=== PATIENT | female | born 1935 | race Caucasian/White ===

== ENCOUNTER 2021-03-12 16:47 | Emergency (ER) | payer MEDICARE, SELFPAY ==
[2021-03-12 17:19] VITALS: BP 126/78; PULSE 80; RESP 18; TEMP 36.8; O2SAT 96; BMI 30.2
--- NOTE | 2021-03-12 18:17 | ED_ITS ---
HPI - SOB/Dyspnea General: Chief Complaint: Shortness of Breath/Dyspnea Stated Complaint: Congestion/Fluid Build Up Time Seen by Provider: 03/12/21 18:00 History of Present Illness: HPI Narrative: Patient was brought in with concerns of cough and shortness of breath. Her has pneumonia and her home health nurse is concerned that she has pneumonia also. Also wanted her checked out to see if she is in CHF exacerbation. She has a history of CHF, A. fib, she has a pacemaker. She is also had a valve replacement although she is not sure which valve it is. No fever, cough is not productive. MD elicited complaint: shortness of breath and cough Pertinent past history: congestive heart failure and diabetes Timing: constant Severity: mild Exacerbating factors: nothing Relieving factors: nothing Known history of: congestive heart failure Associated symptoms: Reports cough; Deny abdominal pain, chest congestion, chest pain, diaphoresis, dizziness, extremity pain, fever(s), hemoptysis, lightheadedness, myalgias, nausea, orthopnea, palpitations, paresthesias, polydipsia, polyuria, rash, sense of impending doom, syncope or vomiting Treatment prior to arrival: oxygen Review of Systems General: Reports: 10 or more systems reviewed and unremarkable except in HPI and below Const: Denies: fever(s) or diaphoresis Card: Denies: chest pain, palpitations, lightheadedness, syncope or orthopnea Resp: Denies: hemoptysis or chest congestion GI: Denies: abdominal pain, nausea or vomiting Musc: Denies: extremity pain Neuro: Denies: dizziness Endo: Denies: polyuria or polydipsia [facility] ED PFSH: Medical History (Updated 03/12/21 @ 19:40 by Malu Sheridan [place] [facility] [place] COPD (chronic obstructive pulmonary disease) Physical Exam Const: COMMON NORMALS: no acute distress, average body habitus, patient oriented x3, no limitations, healthy appearing, alert and well nourished HENMT: COMMON NORMALS: normocephalic, atraumatic and moist oral mucous membranes HEAD & SCALP: normocephalic and atraumatic Neck/C-Spine: COMMON NORMALS: no meningeal signs and no JVD Chest: COMMONS NORMALS: normal inspection of the chest and normal palpation of entire chest wall Resp: COMMON NORMALS: normal respiratory effort, No retractions, No use of accessory muscles, clear to auscultation bilaterally and percussion normal AUSCULTATION: clear to auscultation bilaterally PERCUSSION: percussion normal Cardio: COMMON NORMALS: no JVD, regular rate, regular rhythm, S1 normal heart sound present, S2 normal heart sound present, No gallops present (Cardio), No clicks present (Cardio), No rub (Cardio) and Peripheral pulses 2+ throughout RATE: regular rate RHYTHM: regular rhythm HEART SOUNDS: S1 normal heart sound present, S2 normal heart sound present and Murmur heart sound present PERIPHERAL PULSES: Peripheral pulses 2+ throughout GI: COMMON NORMALS: Normal to inspection, nondistended, normoactive bowel sounds present, Soft to palpation, non-tender, No hepatosplenomegaly present, no masses and no bruits PALPATION: Yes Soft to palpation and Yes No hepatosplenomegaly present Extremity: COMMON NORMALS: normal to inspection, full ROM, capillary refill normal, no calf tenderness and no pedal edema Neuro: COMMON NORMALS: patient oriented x3 SENSORIUM/ORIENTATION: Yes alert MENINGEAL SIGNS: Yes no meningeal signs Course Reevaluation(s): Reevaluation #1: Discussed lab and imaging findings with the patient and her son. No acute findings. White cell count normal, chest x-ray unremarkable. We will discharge her home with no new orders. She voiced understanding and is in agreement with the plan. Time: 19:40 Vital Signs: Vital signs: Vital Signs Temperature 98.2 F 03/12/21 17:19 Pulse Rate 80 03/12/21 20:05 Respiratory Rate 18 03/12/21 20:05 Blood Pressure 155/77 03/12/21 20:05 Pulse Oximetry 97 03/12/21 20:05 MDM - SOB/Dyspnea MDM Narrative: Medical decision making narrative: 85-year-old female patient who was brought into the emergency department with concerns for follow-up possible pneumonia or worsening of her CHF. Evaluation in the emergency department does not show any acute findings. She is discharged home with no new orders. Medical Records: Attestation: I reviewed the patient's medical records. Lab Data: Attestation: I reviewed the patient's lab results. Labs: Lab Results 03/12/21 03/12/21 03/12/21 Range/Units 18:33 18:33 18:33 WBC 5.5 (4.0-10.0) 10^3/ uL RBC 4.60 (4.1-5.3) 10^6/u L Hgb 13.0 (11.5-15.3) g/dL Hct 41.4 (37.0-47.0) % MCV 90.0 (81-99) fL MCH 28.3 (28.0-34.0) pg MCHC 31.4 (30.0-36.0) g/dL RDW 14.0 (12.1-15.1) % Plt Count 199 (130-400) 10^3/c mm MPV 10.3 (7.4-10.4) fL Neut % (Auto) 53.2 % Lymph % (Auto) 28.1 % [place] % (Auto) 14.0 % Eos % (Auto) 3.8 % Baso % (Auto) 0.7 % Neut # (Auto) 2.92 (1.8-7.7) 10^3/u L Lymph # (Auto) 1.5 (0.8-4.8) 10^3/u L [place] # (Auto) 0.8 (0.2-0.9) 10^3/u L Eos # (Auto) 0.2 (0.0-0.8) 10^3/u L Baso # (Auto) 0.0 (0.0-0.1) 10^3/u L Nucleated RBC % (a uto) 0 % Nucleated RBCs # 0.0 /100WBC Sodium 139 (136-145) mmol/L Potassium 3.9 (3.5-5.1) mmol/L Chloride 101 (98-107) mmol/L Carbon Dioxide 31 H (22-29) mmol/L Anion Gap 10.9 (5-19) BUN 15 (8-23) mg/dL Creatinine 0.6 (0.5-0.9) mg/dL GFR Calculation Not Reportable Glucose 140 H (65-115) mg/dL Calculated Osmolal ity 291 (285-295) mOsm/k g Lactic Acid 1.0 (0.5-2.2) mmol/L Calcium 8.8 (8.5-10.5) mg/dL Total Bilirubin 0.3 (0.15-1.2) mg/dL AST 22 (0-32) U/L ALT 12 (0-33) U/L Alkaline Phosphata se 75 (35-105) IU/L NT-Pro-B Natriuret Pep 2367 H (0-450) pg/mL Total Protein 6.0 L (6.6-8.7) g/dL Albumin 3.4 L (3.5-5.2) g/dL Globulin 2.6 (1.3-4.6) g/dL Imaging Data^: CXR: Attestation: I personally reviewed and interpreted this imaging study as follows: Radiologist's impression: [address] [id number] ReportSigned Patient: Livier Nash #: [id number]: 5Acct#:[id number]/Sex: 85 / FADM Date: 03/12/21Loc: ERRoom/Bed:Attending Dr: Ordering Provider/Ordering MD: aMlu Sheridan [place] [facility] [place] of Service: 03/12/21 Procedure(s): XR chest 1V portable [id number] Accession Number(s): [id number] Report Number: [id number] PROCEDURE INFORMATION: Exam: XR Chest Exam date and time: 03/12/2021 6:30 PM Age: 85 years old Clinical indication: Shortness of breath; Prior surgery; Surgery type: Heart; Patient HX: SOB, congestion, fluid buildup, non smoker TECHNIQUE: Imaging protocol: XR of the chest. Views: 1 view. Total images: 1 COMPARISON: CR Chest 1 [place] [id number] 10/26/2018 1:58 PM FINDINGS: Tubes, catheters and devices: Pacemaker defibrillator. Lungs: No visible active interstitial or alveolar airspace disease. COPD/chronic bronchitis/emphysema. Pleural spaces: No pleural effusion. No pneumothorax. Heart/Mediastinum: Cardiac structures and configuration stable with status post sternotomy chest and CABG. Arteriosclerosis. Bones/joints: Unremarkable. XR/XR chest 1V portable [id number] IMPRESSION: Stable nonacute. Dictated By:Wili Gray By:Wili Gray Date/Time:03/12/214DD/ 11 Discharge Plan Discharge Patient Disposition: Home Clinical Impression: Congestive heart failure Qualifiers: Heart failure type: unspecified Heart failure chronicity: chronic Qualified Code(s): I50.9 - Heart failure, unspecified Condition: Stable Prescriptions: Continued warfarin 5 mg tablet 5 mg PO DAILY RF: 0 carvedilol 12.5 mg tablet 12.5 mg PO BID RF: 0 furosemide 40 mg tablet 40 mg PO DAILY RF: 0 lovastatin 20 mg tablet 20 mg PO DAILY RF: 0 tramadol 50 mg tablet 50 mg PO BID PRN (Reason: Pain) RF: 0 nitroglycerin 0.4 mg tablet, sublingual 0.4 mg sublingual Q5M PRN (Reason: Chest Pain) RF: 0 (DME) Thumb Spica Splint See Rx Instructions .ROUTE .MEDSUPPLY Qty: 1 RF: 0 Levemir FlexTouch U-100 Insuln 100 unit/mL (3 mL) insulin pen 35 unit SUBCUT DAILY Qty: 15 RF: 3 budesonide-formoterol [Symbicort] 80-4.5 mcg/actuation HFA aerosol inhaler 2 puff inhalation BID Qty: 10.2 RF: 6 PreserVision AREDS-2 250-90-40-1 mg Capsule 1 tab PO BID RF: 0 Fish Oil 1 tab PO DAILY RF: 0 Discharge Orders: Discharge ED (Routine); Ordered 03/12/21 Ordered By: Malu Sheridan Referrals: Stuart Chau MD [Primary Care Provider] - 1-3 days Discharge Diet: Usual diet Discharge Activity: Increase activity as tolerated Patient Instructions: Heart Failure (ED) Activity Restrictions/Additional Instructions: Return for any new or worsening symptoms. Follow-up with your primary care provider within 3 days. Your heart failure is stable and is not showing any signs of worsening. No signs of pneumonia on your x-ray. Your labs look pretty good. Continue your home medications. Coding Level of Care Code ED [facility] for [facility]
[2021-03-12 18:35] VITALS: BP 137/73; PULSE 80; RESP 18; O2SAT 97
[2021-03-12 18:42] LABS: Basophils % 0.7 %; Eosinophils # 0.2 10^3/uL (0.0-0.8); Eosinophils % 3.8 %; Hematocrit 41.4 % (37.0-47.0); Lymphocytes # 1.5 10^3/uL (0.8-4.8); Lymphocytes % 28.1 %; Mean Corpuscular HGB Conc 31.4 g/dL (30.0-36.0); Mean Corpuscular Hemoglobin 28.3 pg (28.0-34.0); Mean Platelet Volume 10.3 fL (7.4-10.4); Monocytes # 0.8 10^3/uL (0.2-0.9); Neutrophils # 2.92 10^3/uL (1.8-7.7); Neutrophils % 53.2 %; Nucleated Red Blood Cells % 0 %; Platelet Count 199 10^3/cmm (130-400); White Blood Count 5.5 10^3/uL (4.0-10.0)
[2021-03-12 19:13] LABS: Alanine Aminotransferase 12 U/L (0-33); Albumin Level 3.4 g/dL (3.5-5.2); Alkaline Phosphatase 75 IU/L (35-105); Aspartate Amino Transferase 22 U/L (0-32); Blood Urea Nitrogen 15 mg/dL (8-23); Calcium 8.8 mg/dL (8.5-10.5); Carbon Dioxide 31 mmol/L (22-29); Chloride 101 mmol/L (98-107); Globulin 2.6 g/dL (1.3-4.6); Glucose 140 mg/dL (65-115); NT Pro B Type Natriuretic Pept 2367 pg/mL (0-450); Osmolality Calculated 291 mOsm/kg (285-295); Sodium 139 mmol/L (136-145); Total Bilirubin 0.3 mg/dL (0.15-1.2)
[2021-03-12 19:21] LABS: Anion Gap 10.9 (5-19); Potassium 3.9 mmol/L (3.5-5.1)
[2021-03-12 19:31] VITALS: BP 152/75; PULSE 80; RESP 18; O2SAT 97
[2021-03-12 20:05] VITALS: BP 155/77; PULSE 80; RESP 18; O2SAT 97
== END 2021-03-12 20:06 | disposition home or self-care (01) ==
PROVIDERS: Emergency Provider Family Medicine; PCP Family Medicine
DX: I11.0 Hypertensive heart disease with heart failure (principal); I50.9 Heart failure, unspecified; Z79.01 Long term (current) use of anticoagulants; Z79.4 Long term (current) use of insulin; J44.9 Chronic obstructive pulmonary disease, unspecified; I70.90 Unspecified atherosclerosis
CPT/HCPCS: 71045; 80053; 83605; 83880; 85025; 99283